=== PATIENT | female | born 1980 | race Two or more races ===

== ENCOUNTER 2021-11-20 07:49 | Emergency (ER) | payer OTHER ==
[~2021-11-20] VITALS: Ht 157.5 cm; Wt 95.3 kg
[2021-11-20 08:46] VITALS: BP 155/93
[2021-11-20] MEDS ORDERED: METH4PAK PO (08:56)
[2021-11-20] MEDS ORDERED: AZIT250T PO (08:56)
[2021-11-20] MEDS ORDERED: ALBU108A5 IN (08:56)
== END 2021-11-20 09:07 | disposition home or self-care (01) ==
LOC: ER 07:49
DX: J98.01 Acute bronchospasm (principal); J40 Bronchitis, not specified as acute or chronic; Z90.49 Acquired absence of other specified parts of digestive tract
CPT/HCPCS: 71045